=== PATIENT | male | born 1990 | race Caucasian/White ===

== ENCOUNTER 2019-07-06 15:51 | Inpatient (IN) | payer MEDICAID ==
[~2019-07-06] VITALS: Ht 172.7 cm; Wt 87.1 kg
--- NOTE | 2019-07-06 17:32 | NUR ---
PT BIBRA FROM OUTSIDE A DONUT SHOP TO ED BED 13. PT WAS NOTED TO BE UNDER THE INFLUENCE OF ALCOHOL. STABLE VITALS. AWAITING MD DUNNE.
--- NOTE | 2019-07-06 17:46 | NUR ---
DR LEWIS AT BEDSIDE FOR EVAL.
[2019-07-06] MEDS ORDERED: IV NS 0.9% 1,000 ML BAG IV ONE ×2 (18:00→20:30)
--- NOTE | 2019-07-06 18:23 | NUR ---
IV LINE STARTED BLOOD DRAWN AND SENT TO LAB.
[2019-07-06 18:36] LABS: HEMATOCRIT 27 % (39-51); HEMOGLOBIN 8.4 g/dL (13.5-17.5); MEAN CORPUSCULAR HGB CONC 32 g/dl (31.0-36.0); MEAN CORPUSCULAR VOLUME 64 fL (80-96); PLATELET COUNT (AUTO) 64 /CMM (150-450); RED BLOOD CELL COUNT(AUTO) 4.13 MIL/uL (4.5-6.0)
[2019-07-06 18:46] LABS: ALBUMIN 2.7 g/dL (3.4-5.0); BILIRUBIN,DIRECT 0.4 mg/dL (0.0-0.2); BILIRUBIN,TOTAL 1.1 mg/dL (0.2-1.0); CALCIUM, SERUM 8.3 mg/dL (8.5-10.1); CREATININE 1.4 mg/dL (0.6-1.3); TOTAL PROTEIN, SERUM 7.2 g/dL (6.4-8.2)
[2019-07-06 18:47] LABS: SALICYLATE 0.4 mg/dL (2.8-20.0)
[2019-07-06 18:51] LABS: POTASSIUM 3.3 mmol/L (3.5-5.1)
[2019-07-06 18:53] LABS: WHITE BLOOD COUNT (AUTO) 1.3 K/uL (4.3-11.0)
[2019-07-06 19:28] LABS: CALCIUM, SERUM 7.6 mg/dL (8.5-10.1); CREATININE 1.2 mg/dL (0.6-1.3); POTASSIUM 3.3 mmol/L (3.5-5.1)
--- NOTE | 2019-07-06 19:50 | NUR ---
called house sup for icu bed and submitted move sheet to admitting.
[2019-07-06 20:05] LABS: LYMPHOCYTES % (MANUAL) 20 % (16-48); MONOCYTES % (MANUAL) 8 % (0-11.0); NEUTROPHILS % (MANUAL) 72 (42-76)
[2019-07-06] MEDS ORDERED: LORAZEPAM INJ 2 MG/ML VIAL ONE (20:27)
--- NOTE | 2019-07-06 20:34 | NUR ---
verbal order from dr. fonseca: ativan 2mg ivp, given lac16 ivp
--- NOTE | 2019-07-06 21:09 | NUR ---
BED ASSIGNMENT 260
[2019-07-06] MEDS ORDERED: IOHEXOL-300 100 ML VIAL IV ONE (21:24)
--- NOTE | 2019-07-06 21:39 | NUR ---
REPORT GIVEN TO WILLIE CONNOR FOR ADMISSION
[2019-07-06] MEDS ORDERED: PROPOFOL 100 ML ONE (21:43)
[2019-07-06] MEDS: PROPOFOL 200 MG/20 ML VIAL IV PRN ×2 (21:44→23:46)
--- NOTE | 2019-07-06 22:00 | NUR ---
7.[address] LEWIS WITH RT @ 2132, 25 AT THE LIP, PLACEMENT CHECKED BY BILAT BREATH SOUNDS; CXR ORDERED FOR PLACEMENT CONFIRMATION, O2 SAT @100%, PT COLOR IS PINK, SKIN WARM AND DRY.
--- NOTE | 2019-07-06 22:01 | NUR ---
OG TUBE PLACED, CONFIRMED PLACEMENT THROUGH AUSCULTATION, ASPIRATION & XRAY. CONFIRMED WITH NIKOLAS RAUSCH
--- NOTE | 2019-07-06 22:09 | NUR ---
pt to ct
[2019-07-06] MEDS ORDERED: LORAZEPAM INJ 2 MG/ML VIAL IV ONE (23:00)
[2019-07-06] MEDS ORDERED: Z GUARD REMEDY 2 OZ OINT TP PRN (23:00)
[2019-07-06] MEDS ORDERED: FILGRASTIM (480 MCG) 480 MCG/1.6 ML VIAL SQ ONE (23:00)
[2019-07-06] MEDS ORDERED: MORPHINE SULFATE INJ 2 MG/ML DISP.SYRIN IV PRN (23:00)
[2019-07-06] MEDS ORDERED: ACETAMINOPHEN 650 MG/SUPP.RECT RC PRN (23:00)
--- NOTE | 2019-07-06 23:00 | NUR ---
RT PT WAS INTUBATED ON THE CURRENT MD ORDERED VENTILATOR SETTING.WILL CONTINUE TO MONITOR FOR CHANGES. ALARMSON AND AUDIABLE. AMBU-BAG AT BEDSIDE. VENTILATOR PLUGGED INTO RED OUTLET
--- NOTE | 2019-07-06 23:10 | NUR ---
ADMITTED FROM ER, ORALLY INTUBATED,SEDATED ON PROPOFOL DRIP, STILL GETS AGITATED DESPITE PROPOFOL( WILL INCREASE NEEDED).VERY TACHYPNEIC WITH DEEP LABORED BREATHING,TACHYCARDIC. PRESENTED TO ED ,WAS FOUND WITH ALCOHOL INTOXCATION.WHILE IN ER STARTED TO GET SHORT OF BREATH ,DESATURATED ,PATIENT INTUBATED.WBC=1.3,PLT=64,K=3.3
[2019-07-06 23:17] VITALS: BP 91/69
--- NOTE | 2019-07-06 23:18 | NUR ---
pt transported to icu
[2019-07-06 23:24] LABS: APPEARANCE,URINE Clear (CLEAR); BILIRUBIN,URINE Negative (NEGATIVE); BLOOD, URINE Moderate Ery/uL (NEGATIVE); COLOR,URINE Yellow (YELLOW); KETONES,URINE Trace (NEGATIVE); LEUKOCYTE ESTERASE ,URINE Negative (NEGATIVE); NITRITE, URINE Negative (NEGATIVE); PROTEIN,URINE 100 mg/dl (NEGATIVE); UGLUCOSE Negative (NEGATIVE); UROBILINOGEN,URINE 0.2 EU/dL (0.2)
[2019-07-06] MEDS ORDERED: VANCOMYCIN 1.25 GM in IV D5W 250 ML IV ONE (23:30)
[2019-07-06 23:42] VITALS: BP 91/69
[2019-07-06 23:54] LABS: BACTERIA,URINE None seen /HPF (None Seen); MUCUS,URINE Few /LPF (None Seen); RBC,URINE 0-2 /HPF (0-2); SQUAMOUS EPITHELIAL CELL,UR Moderate /HPF (None Seen); WBC,URINE 0-2 /HPF (0-3)
[2019-07-07] VITALS (43 sets, daily range): BP systolic 76–135; BP diastolic 42–82
[2019-07-07] MEDS ORDERED: PIPERACILLIN /TAZOBACTAM 3.375 G in IV D5W 50 ML IV SCH ×4
--- NOTE | 2019-07-07 | NUR ---
ABG DONE ,PH=7.32 , CO2= 31.6 , PO2= 84.5 ,HCO3= 16 ,SAT= 94.5
--- NOTE | 2019-07-07 | NUR ---
FAMILY VISITED, SISTER( ADITYA KELLOGG . STATED THAT GREGORY COX IS NOT THE PATIENTS NAME, REAL NAME IS EVENS KELLOGG. AND THAT PATIENT IS HOMELESS AND HAS BEEN DRINKING Q DAY FOR THE LAST 2 YEARS BUT PATIENT HAS BEEN DRINKING AT A YOUNG AGE (SINCE AGE 8).
[2019-07-07] MEDS: PROPOFOL 100 ML IV PRN ×10 (00:15→23:08)
[2019-07-07] MEDS ORDERED: PIPERACILLIN /TAZOBACTAM 3.375 G VIAL IV ONE (00:22)
[2019-07-07] MEDS ORDERED: VANCOMYCIN 500 MG VIAL ONE (00:45)
[2019-07-07] MEDS ORDERED: VANCOMYCIN 1 GM VIAL ONE (00:46)
[2019-07-07] MEDS: LORAZEPAM INJ 2 MG/ML VIAL IV SCH ×5 (00:53→23:00)
--- NOTE | 2019-07-07 01:30 | NUR ---
RT NOTE PT TRANSFER TO ICU ROOM 206. RN NONA PRESENT. VENT PLUGGED INTO RED OUTLET ALARMS ON AND AUDIABLE. AMBUBAG BY BEDSIDE.PT CURRENTLY ON AC VC+ 450, 16, 100%, PEEP 5. SIZE 7.5 ETTUBE. WILL CONTINUE TO MONTOR FOR DISTRESS OR CHANGES.
--- NOTE | 2019-07-07 02:00 | NUR ---
PER NURSING SHOP WELDER THERE IS NO D5NSS WITH KCL OF NOW,HAS TO WAIT TILL PHARMACY CAN MIX IT IN THE MORNING.,,BUT THERE IS PREMIX NSS WITH KCL ,WILL VERIFY WITH MD IF WE CAN CHANGE FOR NOW.
[2019-07-07 02:59] LABS: ABG BASE EXCESS -9.2 mmol/L; ABG OXYGEN SATURATION 94.5 % (92.0-98.5); ABG PCO2 31.6 mmHg (35.0-45.0); ABG PH 7.321 (7.350-7.450); ABG PO2 84.5 mmHg (75.0-100.0); AaDO2 596.9 mmHg; COHb 1.2 % (0.5-1.5); MetHb 0.1 % (0.0-1.5); O2Hb 93.3 % (94.0-97.0); SITE, ABG Left Radial
--- NOTE | 2019-07-07 03:00 | NUR ---
VERIFIED WITH IF WE CAN HANG NSS WITH KCL FOR NOW .DR. DAO SAID ITS FINE,BUT STILL WANTS THE D5NSS WITH KCL WHEN AVAILABLE.WILL GET IV FLUID FROM NURSING EMPLOYMENT MANAGER.
[2019-07-07] MEDS ORDERED: Potassium Chloride 20 MEQ in IV NS 0.9% 1,000 ML IV PRN (03:30)
--- NOTE | 2019-07-07 03:30 | NUR ---
SPOKE TO GOLF COURSE DESIGNER FOR THE IV FLUID (NSS WITH KCL),REQUEST FORWARDED TO HIM.
--- NOTE | 2019-07-07 03:40 | NUR ---
FOLLOWED UP FROM THE NURSING STAMPING DIE MAKER BENCH ABOUT THE IV FLUID.HE REPLIED HE WILL JUST CALL ME ONCE HE HAS THE IV FLUID( STATED HE'S VERY BUSY RIGHT NOW,HE WILL GET TO ME ONCE HE HAS IT.
--- NOTE | 2019-07-07 03:50 | NUR ---
IV FLUID D5NSS WITHOUT KCL HANGED FOR NOW WHILE WAITING FOR D5NSS WITH KCL @ 80 ML/HR
--- NOTE | 2019-07-07 04:00 | NUR ---
REMAINS AGITATED ON AND OFF,PROPOFOL TITRATED NEEDED BUT BP DROPS INTO 80'S SYSTOLIC AT TIMES( PROPOFOL ACTIVELY TITRATED TOLERATED).STILL TACHYPNEIC WITH LABORED BREATHING.FEBRILE YOIJ=869, COOLING MEASURES DONE,MORE TACHYCARDIC IN THE 130'S DUE TO FEVER.
[2019-07-07 05:16] LABS: HEMATOCRIT 26 % (39-51); HEMOGLOBIN 8.2 g/dL (13.5-17.5); LYMPHOCYTES # (AUTO) 0.2 /CMM (0.8-4.8); MEAN CORPUSCULAR HGB CONC 31 g/dl (31.0-36.0); MEAN CORPUSCULAR VOLUME 66 fL (80-96); MONOCYTES # (AUTO) 0.1 /CMM (0.1-1.30); NEUTROPHILS # (AUTO) 0.2 /CMM (1.8-8.9); PLATELET COUNT (AUTO) 51 /CMM (150-450); RED BLOOD CELL COUNT(AUTO) 4.03 MIL/uL (4.5-6.0)
[2019-07-07 05:32] LABS: ALANINE AMINOTRANSFERASE 46 U/L (12-78); ALBUMIN 2.1 g/dL (3.4-5.0); ALKALINE PHOSPHATASE 40 U/L (46-116); ASPARTATE AMINOTRANSFERASE 99 U/L (15-37); BILIRUBIN,TOTAL 0.8 mg/dL (0.2-1.0); CALCIUM, SERUM 7.4 mg/dL (8.5-10.1); CARBON DIOXIDE 20 mmol/L (21-32); CHLORIDE 82 mmol/L (98-107); CREATININE 1.1 mg/dL (0.6-1.3); GLUCOSE 100 mg/dL (74-106); PHOSPHORUS 2.5 mg/dL (2.5-4.9); POTASSIUM 3.1 mmol/L (3.5-5.1); TOTAL PROTEIN, SERUM 5.8 g/dL (6.4-8.2); UREA NITROGEN, BLOOD 10 mg/dL (7-18)
[2019-07-07 05:36] LABS: WHITE BLOOD COUNT (AUTO) 0.5 K/uL (4.3-11.0)
[2019-07-07 05:40] LABS: CHOLESTEROL 117 mg/dL (<200); HDL CHOLESTEROL 35 mg/dL (40-60); LDL 15 mg/dL (0-99); THYROID STIMULATING HORMONE 0.381 uIU/mL (0.358-3.74); TRIGLYCERIDES 144 mg/dL (30-150)
[2019-07-07 06:01] LABS: SODIUM SERUM 116 mmol/L (136-145)
[2019-07-07 06:02] LABS: MAGNESIUM 1.1 mg/dL (1.8-2.4)
[2019-07-07] MEDS: Potassium Chloride 20 MEQ in IV D5/ 0.9% NACL 1,000 ML IV PRN (06:16)
[2019-07-07 06:40] LABS: EOSINOPHILS % (MANUAL) 3 % (0-4); LYMPHOCYTES % (MANUAL) 34 % (16-48); MONOCYTES % (MANUAL) 25 % (0-11.0); NEUTROPHILS % (MANUAL) 38 (42-76)
[2019-07-07] MEDS: VANCOMYCIN 1.25 GM in IV D5W 250 ML IV SCH ×3 (07:06→20:12)
--- NOTE | 2019-07-07 07:53 | NUR ---
RT RECEIVED PT ORALLY INTUBATED, VENT DEPENDENT W/ ETT 7.5 MARKED @ 25CM LIP, WITH NOTED VENT SETTINGS. SEED PELLETER DONE AND AIRWAY IS SECURE. VENT ALARMS CHECKED AND AUDIBLE. VENT PLUGGED IN RED OUTLET. AMBU BAG NOTED HOB. SORIN B/S RHONCHI, SX W/ SML TO MOD THN GUTIERREZ SECRETIONS. WILL CONTINUE TO MONITOR T/O SHIFT.
[2019-07-07] MEDS ORDERED: ACETAMINOPHEN 650 MG/20.3 ML UDC NG PRN (08:00)
--- NOTE | 2019-07-07 08:00 | NUR ---
CLINICAL QUALITY RN NOTE PATIENT IN BED WITH VENT SETTING ORDERED WITHH ETT IN PLVED , WITH PICC LINE IN PLACED FLUSHED WELL , ON PROPOFOL DRIP ORDERED , ON IVF ORDERED WITH BETHEA CATH TO GRAVITY WITH YELLOW COLOR URINE, STILL OBTUNDED, ON TELE MONITOR ST HR 136 T 1.2.1 TYLENOL VIA OG TUBE GIVEN ORDERED ,COOLING MEASURE PROVIDED, WILL CONT TO MONITOR
[2019-07-07] MEDS ORDERED: FEE PK DOSING 1 MIN EA MC ONE ×2 (08:28→13:45)
[2019-07-07] MEDS: PANTOPRAZOLE 40 MG VIAL IV SCH (08:35)
[2019-07-07] MEDS: THIAMINE HCL 100 MG TABLET NG SCH (08:35)
[2019-07-07] MEDS: MULTIVITAMINS,THERAGRAN 1 UDTAB TABLET NG SCH (08:35)
[2019-07-07] MEDS: FOLIC ACID 1 MG TABLET NG SCH (08:35)
[2019-07-07 08:46] LABS: CALCIUM, SERUM 7.2 mg/dL (8.5-10.1); CREATININE 1.3 mg/dL (0.6-1.3); POTASSIUM 3.2 mmol/L (3.5-5.1)
[2019-07-07] MEDS ORDERED: TBO-FILGRASTIM 480 MCG/0.8 ML ML SQ ONE (09:00)
[2019-07-07] MEDS ORDERED: PIPERACILLIN /TAZOBACTAM 3.375 G in IV D5W 100 ML IV SCH (09:00)
--- NOTE | 2019-07-07 09:10 | NUR ---
RT ABG WAS DONE PER MD ORDER. RESULTS RELAYED TO RN. NO CHANGES MADE.
[2019-07-07 09:13] LABS: ABG BASE EXCESS -7.5 mmol/L; ABG OXYGEN SATURATION 92.5 % (92.0-98.5); ABG PCO2 24.2 mmHg (35.0-45.0); ABG PH 7.432 (7.350-7.450); ABG PO2 64.7 mmHg (75.0-100.0); AaDO2 624.1 mmHg; COHb 1.5 % (0.5-1.5); MetHb 0.3 % (0.0-1.5); O2Hb 90.8 % (94.0-97.0); PEEP,BG 5 cm H2O; SITE, ABG Left Radial; VT, ABG 450 mL
[2019-07-07] MEDS ORDERED: ETOMIDATE 2 MG/ML VIAL IV ONE (09:38)
[2019-07-07] MEDS ORDERED: SUCCINYLCHOLINE CHLORIDE 20 MG/ML VIAL IV ONE (09:38)
--- NOTE | 2019-07-07 10:00 | NUR ---
RETURNED MATERIALS INSPECTOR NOTE LACTIC ACID TODAY3.7 NA 116 AWARE THAT T 1.2.3 AWARE THAT MAG 1.1 .K 3.2
[2019-07-07] MEDS: Magnesium 1GM/D5W 100ML PREMIX 100 ML IV SCH ×4 (10:20→12:59)
[2019-07-07] MEDS ORDERED: PROPOFOL 100 ML IV PRN (10:30)
[2019-07-07] MEDS: POTASSIUM CL. PREMIX PERIPHER. 50 ML IV SCH ×2 (10:31→11:28)
[2019-07-07] MEDS ORDERED: PHENYLEPHRINE 80 MG in IV D5W 250 ML IV PRN (11:30)
[2019-07-07] MEDS: PHENYLEPHRINE 80 MG in IV D5W 250 ML IV PRN ×2 (11:59→21:09)
--- NOTE | 2019-07-07 12:08 | NUR ---
PRIMARY CARE PHYSICIAN NOTE BP 74/55 CALLED TO BREONNA WITH ORDER TO START CAMRYN DRIP ORDER CARRIED OUT, UA COLLECTED ORDERED ALSO COOLING BLANKET APPLIED, T 101.0
--- NOTE | 2019-07-07 12:31 | NUR ---
MANAGER QUALITY NOTE ON CAMRYN DRIP ORDERED BP 92/45 INFLUENZA SPECIMEN COLLECTED , 2 D ECHO DONE ORDERED
--- NOTE | 2019-07-07 16:00 | NUR ---
ICU RNNOTE DIFLUCAN NOT AVAILABLE, DUNG PHARMACIST AWARE STATED THAT WILL BRING SOON
[2019-07-07] MEDS: OSELTAMIVIR PHOSPHATE 75 MG CAPSULE PO SCH (16:18)
[2019-07-07] MEDS: LEVOFLOXACIN 500 MG /D5W 100ML 500 MG in PREMIX 1 EA IV SCH (16:41)
--- NOTE | 2019-07-07 16:45 | NUR ---
AGENT SPA DESK NOTE BP 87/45,[facility] WILL FF[facility] Addendum: 07/07/19 at 1646 by CARLEE BOOTHE RN STOOL FOR OB COLLECTED, WILL F\U
[2019-07-07 17:00] LABS: OCCULT BLOOD STOOL POSITIVE (NEGATIVE)
--- NOTE | 2019-07-07 17:11 | NUR ---
RECORDER HELPER SEISMOGRAPH NOTE CALLED TO PHARMACY DIFLUCAN NOT AVAILABLE STATED THAT WILL BRING SOON
--- NOTE | 2019-07-07 17:51 | NUR ---
GERIATRIC CASE MANAGER NOTE CALLED AGAIN TO PHARMACY NOTIFIED THAT DIFLUCAN STILL NOT AVAILABLE STATED THAT WILL BRING SOON WILL F\U Addendum: 07/07/19 at 1819 by CARLEE BOOTHE RN 2 NURSES CHECKS FOR DIFLUCAN IN MED ROOM STILL NOT AVAILABLE, SPOKE WITH JAMES PHARMACIST STATED WILL BRING ,STILL BUSY
[2019-07-07] MEDS: FLUCONAZOLE IN NS,PREMIX 200 MG in PREMIX 1 EA IV SCH ×2 (18:24)
[2019-07-07] MEDS: MEROPENEM 1 G in IV NS 0.9% 100 ML IV SCH (18:38)
--- NOTE | 2019-07-07 19:35 | NUR ---
OVERSIZE LOAD PILOT ESCORT NOTE CONT WITH VENT SETTING ORDERED WITH IVF AND PROPOFOL DRIP WILL CONT TO MONITOR ,ENDORSED CARE WITH UPCOMING NURSE
[2019-07-08] VITALS (102 sets, daily range): BP systolic 73–128; BP diastolic 39–90
[2019-07-08] MEDS: PROPOFOL 100 ML IV PRN ×6 (02:23→19:56)
[2019-07-08] MEDS: MEROPENEM 1 G in IV NS 0.9% 100 ML IV SCH ×3 (02:25→22:30)
[2019-07-08] MEDS: LORAZEPAM INJ 2 MG/ML VIAL IV SCH ×4 (04:35→22:29)
[2019-07-08] MEDS: VANCOMYCIN 1.25 GM in IV D5W 250 ML IV SCH ×3 (04:35→20:47)
--- NOTE | 2019-07-08 05:00 | NUR ---
AT APPROX 0200, PT ON STARTED DESATTING INTO THE LOW 80S ON 100% FIO2 PEEP 5.0, CHEST PT DONE AND PT SUCTIONED WITH MINIMAL IMPROVEMENT O2SAT STILL HIGH 80S. PT TURNED TO ELEVATE RIGHT LUNG BECAUSE LEFT LUNG HAS MULTIFOCAL CONSOLIDATION. PT AMBUBAGED TO HELP IMPROVE SAT. EVENTUALLY SAT RETURNED TO LOW 90S
[2019-07-08] MEDS: Potassium Chloride 20 MEQ in IV D5/ 0.9% NACL 1,000 ML IV PRN (05:13)
[2019-07-08] MEDS: PHENYLEPHRINE 80 MG in IV D5W 250 ML IV PRN ×4 (05:20→23:05)
[2019-07-08 05:35] LABS: BASOPHILS % (AUTO) 0.5 % (0.0-2.0); EOSINOPHILS % (AUTO) 0.5 % (0.0-6.0); HEMATOCRIT 26 % (39-51); HEMOGLOBIN 8.3 g/dL (13.5-17.5); LYMPHOCYTES # (AUTO) 0.5 /CMM (0.8-4.8); LYMPHOCYTES % (AUTO) 14.6 % (20.0-44.0); MEAN CORPUSCULAR HGB CONC 32 g/dl (31.0-36.0); MEAN CORPUSCULAR VOLUME 67 fL (80-96); MONOCYTES # (AUTO) 0.1 /CMM (0.1-1.30); MONOCYTES % (AUTO) 2.4 % (2.0-12.0); NEUTROPHILS # (AUTO) 3.1 /CMM (1.8-8.9); RED BLOOD CELL COUNT(AUTO) 3.82 MIL/uL (4.5-6.0); WHITE BLOOD COUNT (AUTO) 3.8 K/uL (4.3-11.0)
[2019-07-08 05:39] LABS: PLATELET COUNT (AUTO) 46 /CMM (150-450)
[2019-07-08 06:06] LABS: ALBUMIN 1.7 g/dL (3.4-5.0); BILIRUBIN,TOTAL 1.9 mg/dL (0.2-1.0); CREATININE 2.4 mg/dL (0.6-1.3); MAGNESIUM 1.8 mg/dL (1.8-2.4); PHOSPHORUS 4.5 mg/dL (2.5-4.9); POTASSIUM 4.1 mmol/L (3.5-5.1); TOTAL PROTEIN, SERUM 5.2 g/dL (6.4-8.2)
[2019-07-08 06:14] LABS: CALCIUM, SERUM 6.9 mg/dL (8.5-10.1)
--- NOTE | 2019-07-08 07:15 | NUR ---
RN INITIAL NOTES RECEIVED INTUBATED, ON VENT. 02 SAT 86%. HOB ELEVATED. SUCTIONED THIN BROWN SECRETIONS. FI02 ON 100%. SINUS TACH ON MONITOR, 125. OG IN PLACE, CLAMPED. PT SEDATED, ON DIPRIVAN AT 50MCG/KG/MIN. ON CAMRYN AT 200MCG/MIN. WILL TITRATE ACCORDINGLY. IVF INFUSING. FC IN PLACE. BLE ELEVATED/ REPOSITIONED. WILL CLOSELY MONITOR
[2019-07-08] MEDS ORDERED: SODIUM CHLORIDE 3% IV ONE (08:00)
[2019-07-08] MEDS: PANTOPRAZOLE 40 MG VIAL IV SCH (08:37)
[2019-07-08] MEDS: MULTIVITAMINS,THERAGRAN 1 UDTAB TABLET NG SCH (08:38)
[2019-07-08] MEDS: THIAMINE HCL 100 MG TABLET NG SCH (08:38)
[2019-07-08] MEDS: OSELTAMIVIR PHOSPHATE 75 MG CAPSULE PO SCH ×2 (08:38→16:21)
[2019-07-08] MEDS: FOLIC ACID 1 MG TABLET NG SCH (08:38)
--- NOTE | 2019-07-08 10:36 | NUR ---
RT NOTE Critical ABG results given to Jose J STEVENS. Vent changes to AC 10 600 100% +14 per Jose J STEVENS. Addendum: 07/08/19 at 1119 by BROOKE RUBI RT Amended: Links added.
[2019-07-08 10:39] LABS: ABG BASE EXCESS -11.8 mmol/L; ABG OXYGEN SATURATION 77.6 % (92.0-98.5); ABG PCO2 37.5 mmHg (35.0-45.0); ABG PO2 47.4 mmHg (75.0-100.0); AaDO2 628.1 mmHg; COHb 1.1 % (0.5-1.5); MetHb 0.2 % (0.0-1.5); O2Hb 76.6 % (94.0-97.0); PEEP,BG 12 cm H2O; SITE, ABG Right Radial; VT, ABG 650 mL
[2019-07-08] MEDS ORDERED: IV Sodium Chloride 3% 500 ML 500 ML IV ONE (11:00)
[2019-07-08] MEDS ORDERED: SODIUM BICARBONATE SYR 50 MEQ/50 ML DISP.SYRIN IV ONE (11:30)
--- NOTE | 2019-07-08 11:35 | NUR ---
RN NOTES SEEN AND EXAMINED BY DR CALZADA. PT INTUBATED, O2 SAT ON LOW 80S, FI02 100%. PT SEDATED. SUCTIONED BROWN THIN SECRETIONS, MODERATE IN AMOUNT. MD AWARE OF ABG RESULT. ORDERED VENT CHANGES, SODIUM BICARB 2 AMPS IVP AND D5 + SODIUM BICARB 3 AMPS AT 75ML/HR. WILL CLOSELY MONITOR.
[2019-07-08] MEDS: HYDROCORTISONE SOD SUCCINATE 100 MG/2 ML VIAL IV SCH ×2 (11:47→16:21)
[2019-07-08] MEDS: ALBUMIN 25% 25 GM in PREMIX 1 EA IV SCH ×2 (12:19→19:56)
[2019-07-08] MEDS: Sodium Bicarbonate 150 MEQ in IV D5W 1,000 ML IV PRN (12:19)
[2019-07-08 13:11] LABS: LYMPHOCYTES % (MANUAL) 5 % (16-48); MONOCYTES % (MANUAL) 20 % (0-11.0); NEUTROPHILS % (MANUAL) 75 (42-76)
--- NOTE | 2019-07-08 14:39 | NUR ---
RT NOTE pt rec'd orally intubated via ETT sz #7.5 secured at 25cm at the lipline. Pt sx'd for large amt of thin brown secretions. Pt on noted [facility] vent settings as charted. Alarms are set and audible. Vent plugged into red outlet. Ambu bag bedside. Will continue to monitor closely. Addendum: 07/08/19 at 1443 by BROOKE RUBI RT Amended: Links added.
--- NOTE | 2019-07-08 15:02 | NUR ---
Social service consult requested by MD for possible homelessness and ETOH. Pt is currently intubated. ARCADE GAMES MECHANIC to assess pt. once extubated and able to provide meaningful information.
[2019-07-08] MEDS: FLUCONAZOLE IN NS,PREMIX 200 MG in PREMIX 1 EA IV SCH ×2 (16:20)
[2019-07-08 17:18] LABS: CALCIUM, SERUM 6.8 mg/dL (8.5-10.1); CREATININE 2.9 mg/dL (0.6-1.3); POTASSIUM 4.1 mmol/L (3.5-5.1)
[2019-07-08] MEDS: LEVOFLOXACIN 500 MG /D5W 100ML 500 MG in PREMIX 1 EA IV SCH (17:29)
--- NOTE | 2019-07-08 18:32 | NUR ---
RN CLOSING NOTES PT REMAINS INTUBATED. FI02 100%, 02 SAT 70-80%. KEPT HOB ELEVATED. SUCTIONED. STILL ON CAMRYN AT 300MCG/MIN, SBP ON 80S. EDITHACCORDION REPAIRER NOTIFIED. ORDERED VASO PRN. REMAINS SEDATED, ON DIPRIVAN AT 50MCG/KG/MIN. IVF INFUSING. KEPT CLEAN AND DRY. REPOSITIONED Q2. BLE ELEVATED. WILL ENDORSE FOR CONTINUITY OF CARE.
[2019-07-08] MEDS: VASOPRESSIN INJ 50 UNIT in IV D5W 497.5 ML IV PRN (20:18)
--- NOTE | 2019-07-08 21:15 | NUR ---
RECEIVED PT INTUBATED ON VENT AC 10, 600, 100%, +14. ETT SIZE 7.5 AT 24CM AT THE LIP VIA ANCHOR FAST. O2 SAT IS IN LOW 70'S NIKOLAS CASTELLANOS AWARE. VENT SETTINGS CHANGED PER DR DAO. RATE CHANGED TO 14 FROM 10, PEEP TO 5 FROM 14. Addendum: 07/08/19 at 2119 by ASIF JUAREZ RT Amended: Links added.
[2019-07-09] VITALS (96 sets, daily range): BP systolic 65–124; BP diastolic 27–81
[2019-07-09] MEDS: ACETYLCYSTEINE 10% SOLN 400 MG/4 ML VIAL NEB SCH ×4 (00:25→23:39)
[2019-07-09] MEDS: PROPOFOL 100 ML IV PRN ×5 (00:36→18:00)
[2019-07-09] MEDS: ALBUMIN 25% 25 GM in PREMIX 1 EA IV SCH (02:55)
[2019-07-09] MEDS: Sodium Bicarbonate 150 MEQ in IV D5W 1,000 ML IV PRN ×2 (04:58→18:26)
[2019-07-09] MEDS: LORAZEPAM INJ 2 MG/ML VIAL IV SCH ×4 (05:04→22:19)
[2019-07-09 05:06] LABS: ALANINE AMINOTRANSFERASE 23 U/L (12-78); ALBUMIN 2.3 g/dL (3.4-5.0); ALKALINE PHOSPHATASE 80 U/L (46-116); ASPARTATE AMINOTRANSFERASE 130 U/L (15-37); BILIRUBIN,TOTAL 2.2 mg/dL (0.2-1.0); CALCIUM, SERUM 6.8 mg/dL (8.5-10.1); CARBON DIOXIDE 21 mmol/L (21-32); CHLORIDE 83 mmol/L (98-107); CREATININE 3.2 mg/dL (0.6-1.3); GLUCOSE 199 mg/dL (74-106); MAGNESIUM 1.7 mg/dL (1.8-2.4); PHOSPHORUS 4.6 mg/dL (2.5-4.9); POTASSIUM 3.6 mmol/L (3.5-5.1); TOTAL PROTEIN, SERUM 4.9 g/dL (6.4-8.2); UREA NITROGEN, BLOOD 26 mg/dL (7-18)
[2019-07-09 05:32] LABS: SODIUM SERUM 119 mmol/L (136-145)
[2019-07-09] MEDS ORDERED: VANCOMYCIN 1 GM VIAL ONE (05:35)
[2019-07-09 05:38] LABS: BASOPHILS # (AUTO) 0.1 /CMM (0.0-0.2); BASOPHILS % (AUTO) 0.4 % (0.0-2.0); EOSINOPHILS % (AUTO) 0.1 % (0.0-6.0); LYMPHOCYTES # (AUTO) 0.7 /CMM (0.8-4.8); LYMPHOCYTES % (AUTO) 5.5 % (20.0-44.0); MEAN CORPUSCULAR HGB CONC 31 g/dl (31.0-36.0); MEAN CORPUSCULAR VOLUME 66 fL (80-96); MONOCYTES # (AUTO) 0.1 /CMM (0.1-1.30); MONOCYTES % (AUTO) 0.5 % (2.0-12.0); NEUTROPHILS # (AUTO) 12.3 /CMM (1.8-8.9); NEUTROPHILS % (AUTO) 93.5 % (43.0-81.0); RED BLOOD CELL COUNT(AUTO) 3.41 MIL/uL (4.5-6.0); WHITE BLOOD COUNT (AUTO) 13.1 K/uL (4.3-11.0)
[2019-07-09] MEDS ORDERED: VANCOMYCIN 500 MG VIAL ONE (05:40)
[2019-07-09 05:41] LABS: HEMATOCRIT 23 % (39-51); PLATELET COUNT (AUTO) 24 /CMM (150-450)
[2019-07-09] MEDS: VANCOMYCIN 1.25 GM in IV D5W 250 ML IV SCH (05:50)
[2019-07-09 06:05] LABS: BAND % (MANUAL) 20 % (0.0-5.0); LYMPHOCYTES % (MANUAL) 7 % (16-48); NEUTROPHILS % (MANUAL) 73 (42-76)
--- NOTE | 2019-07-09 06:20 | NUR ---
VANCOMYCIN 1.25 G BAG NOT LEFT BY PHARMACY, HAD TO GET ASSOCIATE PROFESSOR OF LIBRARY MEDIA TO OVERRIDE 1 GM AND 500 MG TO MIX 1.25 IN 250 ML
--- NOTE | 2019-07-09 06:22 | NUR ---
PT REQUIRING CONSTANT SUCTIONING AND AMBU BAGGING TO TRY TO GET O2SAT > 80 %, OVER 1L OF SECRETIONS FROM ETT IN LINE SUCTIONING, IT WAS REDDISH BROWN AND THICK
--- NOTE | 2019-07-09 07:20 | NUR ---
RN NOTE: Received patient in bed, intubated and sedated with O2 saturation in the 55% with FIO2 100%. ETT 7.5/25cm attached at the lip line. HOB elevated. (R) UA PICC line noted in placed with Diprivan @ 50mcg/kg/min, Vasopressin @0.04 units/min, Neosynephrine @150mcg/min and Bicarbonate drip @75ml/hr. Afebrile. Skin warm to touch. Colunga catheter in placed with yellow urine draining to gravity with minimal urine output. Needs anticipated. Will follow-up with the hospitalist and folded towel machine operator about the patient's condition.
[2019-07-09 07:49] LABS: ABG BASE EXCESS -5.8 mmol/L; ABG OXYGEN SATURATION 65.4 % (92.0-98.5); ABG PCO2 44.4 mmHg (35.0-45.0); ABG PH 7.281 (7.350-7.450); AaDO2 630.6 mmHg; COHb 1.4 % (0.5-1.5); MetHb 0.6 % (0.0-1.5); O2Hb 64.1 % (94.0-97.0); PEEP,BG 5 cm H2O; SITE, ABG Right Radial; VT, ABG 600 mL
[2019-07-09] MEDS: OSELTAMIVIR PHOSPHATE 75 MG CAPSULE PO SCH ×2 (08:31→17:50)
[2019-07-09] MEDS: HYDROCORTISONE SOD SUCCINATE 100 MG/2 ML VIAL IV SCH ×3 (08:31→17:50)
[2019-07-09] MEDS: FOLIC ACID 1 MG TABLET NG SCH (08:31)
[2019-07-09] MEDS: THIAMINE HCL 100 MG TABLET NG SCH (08:31)
[2019-07-09] MEDS: MULTIVITAMINS,THERAGRAN 1 UDTAB TABLET NG SCH (08:31)
[2019-07-09] MEDS: PANTOPRAZOLE 40 MG VIAL IV SCH (08:31)
[2019-07-09 08:39] LABS: BILIRUBIN,DIRECT 1.7 mg/dL (0.0-0.2)
[2019-07-09] MEDS: PHENYLEPHRINE 80 MG in IV D5W 250 ML IV PRN ×3 (09:11→21:18)
[2019-07-09] MEDS: MEROPENEM 1 G in IV NS 0.9% 100 ML IV SCH ×2 (09:53→22:30)
[2019-07-09 10:20] LABS: ABG BASE EXCESS -4.9 mmol/L; ABG OXYGEN SATURATION 59.7 % (92.0-98.5); ABG PH 7.259 (7.350-7.450); ABG PO2 36.7 mmHg (75.0-100.0); AaDO2 626.3 mmHg; COHb 1.4 % (0.5-1.5); MetHb 0.5 % (0.0-1.5); O2Hb 58.6 % (94.0-97.0); PEEP,BG 10 cm H2O; SITE, ABG Right Radial; VT, ABG 600 mL
--- NOTE | 2019-07-09 10:24 | NUR ---
RN NOTE: Dr. Weiss was informed of the repeat ABG result and awaiting for MD's response.
--- NOTE | 2019-07-09 10:45 | NUR ---
RN NOTE: Dr. Ortiz was at the bedside and was explaining to the patient's sister the plan of care for the patient. All concerns were discussed with the hospitalist by the sister.
--- NOTE | 2019-07-09 11:20 | NUR ---
RN NOTE: Dr. Weiss gave an order for the vent changes of PEEP 15 and ABG in 1 hour after vent changes. RT Sharita was at the bedside and made aware.
--- NOTE | 2019-07-09 12:31 | NUR ---
RN NOTE: Dr. Weiss was informed of the repeat ABG @1220. Awaiting for MD's response. Patient has been saturating 43-45% on the current mechanical ventilator setting.
[2019-07-09 12:33] LABS: ABG BASE EXCESS -7.2 mmol/L; ABG OXYGEN SATURATION 55.6 % (92.0-98.5); ABG PCO2 55.2 mmHg (35.0-45.0); ABG PH 7.192 (7.350-7.450); ABG PO2 36.3 mmHg (75.0-100.0); AaDO2 621.5 mmHg; COHb 1.4 % (0.5-1.5); MetHb 0.3 % (0.0-1.5); O2Hb 54.7 % (94.0-97.0); PEEP,BG 15 cm H2O; SITE, ABG Right Radial; VT, ABG 600 mL
--- NOTE | 2019-07-09 12:41 | NUR ---
RN NOTE: Dr. Weiss spoke over the telephone with RT Sharita regarding the patient's ABG result. New vent changes were ordered by Dr. Weiss through RT Sharita and another ABG 1 hour post vent changes.
[2019-07-09 13:58] LABS: ABG BASE EXCESS -6.4 mmol/L; ABG OXYGEN SATURATION 68.3 % (92.0-98.5); ABG PCO2 57.4 mmHg (35.0-45.0); ABG PH 7.193 (7.350-7.450); ABG PO2 43.4 mmHg (75.0-100.0); AaDO2 612.2 mmHg; COHb 1.2 % (0.5-1.5); MetHb 0.5 % (0.0-1.5); O2Hb 67.1 % (94.0-97.0); PEEP,BG 18 cm H2O; SITE, ABG Right Radial; VT, ABG 650 mL
--- NOTE | 2019-07-09 15:15 | NUR ---
RN NOTE: Dr. Ortiz was informed of the patient's Magnesium level 1.7. Awaiting for MD's order.
[2019-07-09 15:58] LABS: ABG BASE EXCESS -8.3 mmol/L; ABG OXYGEN SATURATION 68.3 % (92.0-98.5); ABG PCO2 40.9 mmHg (35.0-45.0); ABG PH 7.263 (7.350-7.450); ABG PO2 40.9 mmHg (75.0-100.0); AaDO2 631.2 mmHg; COHb 0.9 % (0.5-1.5); MetHb 0.8 % (0.0-1.5); O2Hb 67.1 % (94.0-97.0); PEEP,BG 20 cm H2O; SITE, ABG Right Radial; VT, ABG 750 mL
[2019-07-09] MEDS: FLUCONAZOLE IN NS,PREMIX 200 MG in PREMIX 1 EA IV SCH ×2 (16:33)
[2019-07-09] MEDS: VASOPRESSIN INJ 50 UNIT in IV D5W 497.5 ML IV PRN (17:19)
[2019-07-09 17:40] LABS: ABG BASE EXCESS -11.4 mmol/L; ABG OXYGEN SATURATION 74.2 % (92.0-98.5); ABG PCO2 44.8 mmHg (35.0-45.0); ABG PH 7.178 (7.350-7.450); ABG PO2 49.5 mmHg (75.0-100.0); AaDO2 618.7 mmHg; COHb 1.1 % (0.5-1.5); MetHb 0.5 % (0.0-1.5); PEEP,BG 22 cm H2O; SITE, ABG A-Line; VT, ABG 750 mL
--- NOTE | 2019-07-09 17:53 | NUR ---
RT NOTE: PATIENT RECEIVED ORALLY INTUBATED WITH 7.5 ETT SECURED AT 25CM MID LIP LINE ON PB 840 VENT. ABG'S REPORTED TO AND CHANGES MADE PER HIS ORDERS. VENT PLUGGED INTO RED OUTLET. AMBU BAG AT [facility].
[2019-07-09] MEDS: LEVOFLOXACIN 500 MG /D5W 100ML 500 MG in PREMIX 1 EA IV SCH (18:27)
[2019-07-09] MEDS ORDERED: IV NS 0.9% 1,000 ML IV PRN (19:24)
--- NOTE | 2019-07-09 19:30 | NUR ---
RN NOTE: Bedside report was given to NIKOLAS Eugene for continuity of care. (B) soft wrist restraints were renewed. Patient had a (R) femoral A-line in placed by Dr. Ortiz @1700 today at the bedside. Family was present at the bedside and explained to them the importance of the arterial line for accurate BP reading and they were agreeable of the bedside procedure.
[2019-07-09 19:42] LABS: ABG BASE EXCESS -13.2 mmol/L; ABG OXYGEN SATURATION 74.4 % (92.0-98.5); ABG PCO2 47.1 mmHg (35.0-45.0); ABG PH 7.128 (7.350-7.450); ABG PO2 51.3 mmHg (75.0-100.0); AaDO2 614.6 mmHg; COHb 1.1 % (0.5-1.5); MetHb 0.4 % (0.0-1.5); O2Hb 73.3 % (94.0-97.0); PEEP,BG 22 cm H2O; SITE, ABG A-Line
--- NOTE | 2019-07-09 19:44 | NUR ---
ABG DONE. NOTIFIED NIKOLAS CASTELLANOS AND CHARGE REZA WITH THE RESULT.
[2019-07-09] MEDS ORDERED: SODIUM BICARBONATE SYR 50 MEQ/50 ML DISP.SYRIN IV ONE (20:00)
--- NOTE | 2019-07-09 20:00 | NUR ---
INSURANCE ADJUSTER - NOTES - PT INTUBATED. FI02 100% PEEP 22.0, 02 SAT 70-80%. KEPT HOB ELEVATED. SUCTIONED. STILL ON CAMRYN AT 300MCG/MIN AND VASOPRESSIN 0.04 UNITS/MIN, SBP ON 80S. REMAINS SEDATED, ON DIPRIVAN AT 50MCG/KG/MIN. IVF INFUSING. KEPT CLEAN AND DRY. REPOSITIONED Q2. BLE ELEVATED. WILL ENDORSE FOR CONTINUITY OF CARE.
[2019-07-09] MEDS: NOREPINEPHRINE 16 MG in IV D5W 500 ML IV PRN (21:19)
[2019-07-10] VITALS (86 sets, daily range): BP systolic 53–122; BP diastolic 27–70
--- NOTE | 2019-07-10 00:43 | NUR ---
COTTON CANDY MAKER PT AT 2304. DECLARED LUCA KENDALL..
[2019-07-10] MEDS: PHENYLEPHRINE 80 MG in IV D5W 250 ML IV PRN ×5 (01:49→20:01)
[2019-07-10] MEDS: PROPOFOL 100 ML IV PRN ×5 (01:51→18:36)
[2019-07-10] MEDS: LORAZEPAM INJ 2 MG/ML VIAL IV SCH ×3 (05:00→17:05)
[2019-07-10] MEDS: Sodium Bicarbonate 150 MEQ in IV D5W 1,000 ML IV PRN ×3 (05:42→15:26)
[2019-07-10 05:43] LABS: CALCIUM, SERUM 6.1 mg/dL (8.5-10.1); CREATININE 4.4 mg/dL (0.6-1.3); POTASSIUM 3.9 mmol/L (3.5-5.1)
[2019-07-10] MEDS ORDERED: VANCOMYCIN 1.25 GM in IV D5W 250 ML IV SCH (06:00)
--- NOTE | 2019-07-10 07:30 | NUR ---
AUDITING CODER OPENING NOTE RECEIVED REPORT FROM PM NURSE.PATIENT IN BED.ORALLY INTUBATED.7.5A 25@LIP LEVEL.ON AC 26,TV 750, FI02 100% PEEP 22. 02 SAT 70-80%. HOB ELEVATED. ON CAMRYN AT 300MCG/MIN AND VASOPRESSIN 0.04 UNITS/MIN.ON LEVO 6MCG. REMAINS SEDATED ON DIPRIVAN AT 50MCG/KG/MIN. IVF WITH BICARB INFUSING. BETHEA CATH HAS <10 ML URINE.IV LINES ARE INTACT.BED IS LOW AND IN LOCKED POSITION. CALL LIGHT IN REACH.BED ALARM ON.SRX3.WILL CONTINUE TO MONITOR.
[2019-07-10] MEDS: ACETYLCYSTEINE 10% SOLN 400 MG/4 ML VIAL NEB SCH ×2 (07:39→15:28)
--- NOTE | 2019-07-10 07:58 | NUR ---
WOUND CARE CONSULT: PT UNSTABLE AT THIS TIME FOR SKIN ASSESSMENT. PER ADMISSION DOCUMENTATION PT HAS DRY LESION TO UPPER LIP, PRESENT ON ADMISSION. RN TO DISCUSS WITH MD. DISCUSSED SKIN PROTECTION WITH NURSING STAFF. WILL SEE PT PT CONDITION PERMITS. Addendum: 07/10/19 at 0806 by SHAYY HERNANDEZ WNDNU FIRST STEP LOW AIRLOSS MATTRESS ON ORDER. CURRENT KATRINA SCORE IS 12. MD IN AGREEMENT WITH PLAN OF CARE.
[2019-07-10 08:00] LABS: ABG BASE EXCESS -4.6 mmol/L; ABG OXYGEN SATURATION 70.6 % (92.0-98.5); ABG PCO2 42.6 mmHg (35.0-45.0); ABG PH 7.315 (7.350-7.450); ABG PO2 44.6 mmHg (75.0-100.0); AaDO2 625.8 mmHg; COHb 1.4 % (0.5-1.5); MetHb 0.4 % (0.0-1.5); O2Hb 69.3 % (94.0-97.0); PEEP,BG 22 cm H2O; SITE, ABG Left Radial; VT, ABG 750 mL
--- NOTE | 2019-07-10 08:20 | NUR ---
MOP WORKER NOTE SEEN BY .RELAYED ABG RESULT.RT JEAN AT BEDSIDE.WILL CONTINUE TO MONITOR.
--- NOTE | 2019-07-10 08:23 | NUR ---
VENT CHANGES BELOW MADE PER DR. REYNOSO: AC 32 VT 700 ML PEEP +24 RN NOTIFIED ON CHANGES. Addendum: 07/10/19 at 0824 by JEAN JANE RT Amended: Links added.
[2019-07-10] MEDS: HYDROCORTISONE SOD SUCCINATE 100 MG/2 ML VIAL IV SCH ×3 (08:26→17:05)
[2019-07-10] MEDS: MULTIVITAMINS,THERAGRAN 1 UDTAB TABLET NG SCH (08:26)
[2019-07-10] MEDS: PANTOPRAZOLE 40 MG VIAL IV SCH (08:26)
[2019-07-10] MEDS: FOLIC ACID 1 MG TABLET NG SCH (08:26)
[2019-07-10] MEDS: THIAMINE HCL 100 MG TABLET NG SCH (08:26)
[2019-07-10] MEDS: OSELTAMIVIR PHOSPHATE 75 MG CAPSULE PO SCH ×2 (08:26→17:05)
[2019-07-10 10:12] LABS: ABG BASE EXCESS -0.7 mmol/L; ABG OXYGEN SATURATION 68.5 % (92.0-98.5); ABG PCO2 48.3 mmHg (35.0-45.0); ABG PH 7.336 (7.350-7.450); ABG PO2 41.4 mmHg (75.0-100.0); AaDO2 623.3 mmHg; COHb 1.5 % (0.5-1.5); MetHb 0.7 % (0.0-1.5); PEEP,BG 24 cm H2O; SITE, ABG A-Line; VT, ABG 700 mL
--- NOTE | 2019-07-10 10:41 | NUR ---
FOLLOWING VENT CHANGES MADE PER DR. REYNOSO: BiLEVEL MODE, P-HIGH 58, P-LOW 24, FREQ 32, I:E ratio 1:2.0. Addendum: 07/10/19 at 1043 by JEAN JANE RT Amended: Links added.
[2019-07-10] MEDS: MEROPENEM 1 G in IV NS 0.9% 100 ML IV SCH (10:52)
--- NOTE | 2019-07-10 12:30 | NUR ---
US MARKETING DIRECTOR NOTE SARATH AT BEDSIDE.SPOKE TO THE PATIENT FAMILY.SPOKE TO THE SISTER.EXPLAINED POOR PROGNOSIS.S/P HD CATH WIT PIG TAIL ON L FEMORAL BY .INTACT AND PATENT.DECREASE O2 SAT IN 60'S-70'S. AWARE.CHANGING VENT SETTINGS.WILL DO ABG AFTER.WILL CONTINUE TO MONITOR.
[2019-07-10] MEDS: NOREPINEPHRINE 16 MG in IV D5W 500 ML IV PRN (12:41)
[2019-07-10 13:10] LABS: ABG BASE EXCESS -0.5 mmol/L; ABG OXYGEN SATURATION 74.7 % (92.0-98.5); ABG PCO2 47.6 mmHg (35.0-45.0); ABG PH 7.343 (7.350-7.450); ABG PO2 45.6 mmHg (75.0-100.0); AaDO2 619.8 mmHg; COHb 1.4 % (0.5-1.5); MetHb 0.8 % (0.0-1.5); O2Hb 73.1 % (94.0-97.0); SITE, ABG A-Line; VENT MODE, BG p-high 58/ p-low 24
--- NOTE | 2019-07-10 13:37 | NUR ---
vent changes below per dr. quigley: p-low 25 Addendum: 07/10/19 at 1337 by JEAN JANE RT Amended: Links added.
[2019-07-10] MEDS: VASOPRESSIN INJ 50 UNIT in IV D5W 497.5 ML IV PRN (14:18)
--- NOTE | 2019-07-10 14:30 | NUR ---
EXPORT DOCUMENTS CLERK NOTE PATIENT IS NOT STABLE TO TURN AND REPOSITION.ONGOING DIALYSIS WITH LOW O2 SAT OF 60'S WITH BILEVEL VENT SETTINGS WITH 100% O2.WILL CONTINUE TO MONITOR.
[2019-07-10] MEDS: FLUCONAZOLE IN NS,PREMIX 200 MG in PREMIX 1 EA IV SCH ×2 (15:43)
--- NOTE | 2019-07-10 16:00 | NUR ---
BASEBALL SEWER HAND NOTE PER RT NO CHANGES IN ETT POSITION. MADE AWARE BY RT.
--- NOTE | 2019-07-10 16:00 | NUR ---
DIE CUTTER NOTE S/P DIALYSIS.1.5L OUT FROM HD.SATURATING 60'S WITH 100% FIO2.WILL CONTINUE TO MONITOR.
[2019-07-10 16:23] LABS: ABG BASE EXCESS -4.4 mmol/L; ABG OXYGEN SATURATION 79.8 % (92.0-98.5); ABG PCO2 44.9 mmHg (35.0-45.0); ABG PH 7.302 (7.350-7.450); ABG PO2 54.9 mmHg (75.0-100.0); AaDO2 613.2 mmHg; COHb 1.7 % (0.5-1.5); MetHb 0.4 % (0.0-1.5); O2Hb 78.1 % (94.0-97.0); SITE, ABG A-Line; VENT MODE, BG p-high 58/ p-low 25
[2019-07-10] MEDS: LEVOFLOXACIN 500 MG /D5W 100ML 500 MG in PREMIX 1 EA IV SCH (17:06)
--- NOTE | 2019-07-10 18:00 | NUR ---
SALES MANAGEMENT INTERN NOTE PATIENT WAS COUGHING .SISTER WAS AT BEDSIDE.VENT ALARM ON.FIND OUT PATIENT ET TUBE NOT IN RIGHT POSITION.LEAKING AIR .DR.NEW BENITEZ IN ER MADE AWARE.ET TUBE READJUSTED BY 'S ORDER.BREATH SOUNDS BILATERAL COARSE RHONCHI POST ET TUBE ADJUSTMENT.AWAITING C XRAY RESULT.
--- NOTE | 2019-07-10 18:05 | NUR ---
ET TUBE ADJUSTED TO 28 CM CENTER OF THE LIPS PER DR. AYOUB. BREATH SOUNDS BILATERAL COARSE RHONCHI POST ET TUBE ADJUSTMENT. Addendum: 07/10/19 at 1806 by JEAN JANE RT Amended: Links added.
--- NOTE | 2019-07-10 19:32 | NUR ---
COPY CAMERA OPERATOR CLOSING NOTE PATIENT IS INTUBATED AND SEDATED.WITH O2 SAT 68% WITH 100% O2.ALL IV LINES ARE INTACT AND PATENT.ST ON TELE MONITOR.ENDORSED TO PM NURSE FOR KEVIN.
[2019-07-10 20:30] LABS: ALBUMIN 1.6 g/dL (3.4-5.0); BILIRUBIN,TOTAL 3.5 mg/dL (0.2-1.0); CALCIUM, SERUM 6.2 mg/dL (8.5-10.1); POTASSIUM 3.9 mmol/L (3.5-5.1); TOTAL PROTEIN, SERUM 4.6 g/dL (6.4-8.2)
--- NOTE | 2019-07-10 20:39 | NUR ---
agricultural production engineer. initial assessment. rexceived the pt rest on the bed. orally intubated. sedated with diprivan. ett 7.5,lip 28ac 32, FIO2 100% IE 2:1,PEEP 58 HIGH, PEEP LOW 25. SAT 68. HOB ELEVATED.IV RT UPPER ARM PICC LINE LT AC 18,RT FEMORAL HD ACTH WITH PICC TALE.RT AC 18G. FC PATENT, NO URINE OUT PUT, AFEBRILE. GENERALIZED EDEMA 4+.IVF D5W IN 3 AMP 125 ML/H,DIP 50MCG/KG/MIN,LEVOPHED 2MCG/MIN,CAMRYN 300MCG/MIN,RAISSA 0.04 U/H,NGT LOW INTERMITTENT SUCTION. PT IS VERY UNSTABLE. SAT IS 68%. WILL CONTINUE TO MONITOR.
--- NOTE | 2019-07-10 20:48 | NUR ---
LABORER SAWMILL. PT SATURATION IS VERY LOW UNABLE TO REPOSITION.
--- NOTE | 2019-07-10 21:00 | NUR ---
ICU PT HAS NO GAG REFLEX. PUPIL DILATED AND FIXED.
--- NOTE | 2019-07-10 21:35 | NUR ---
RT PT CODED COMPRESSIONS INITIATED
--- NOTE | 2019-07-10 21:45 | NUR ---
SALES AND MARKETING MANAGER. PT SATURATION 50, SUCTION DONE. SUDDEN MONITOR SHOWING ASYSTOLE. ACTIVATED CODE BLUE. CPR STARTED, ONE ROUND EPI PUSHED. HEART RATE BACK, SAT 80%. CODE ACTIVATED 2135,FINISHED 2137.NO GAG REFLEX, PT IS VERY UNSTABLE.
[2019-07-10 22:03] LABS: CALCIUM, SERUM 6.3 mg/dL (8.5-10.1); CREATININE 3.9 mg/dL (0.6-1.3); MAGNESIUM 2.2 mg/dL (1.8-2.4); POTASSIUM 3.9 mmol/L (3.5-5.1)
--- NOTE | 2019-07-10 22:12 | NUR ---
ROLLER HAND. 2ND CODE WAS 2212, CODE END [id number].PT IS VERY UNSTABLE. PUPIL FIXED AND DILATED.
--- NOTE | 2019-07-10 22:41 | NUR ---
ELIGIBILITY AND OCCUPANCY INTERVIEWER. LT SIDE NECK EMPHYSEMA NOTED. CHEST X RAY ORDERED.
[2019-07-10] MEDS ORDERED: EPINEPHRINE (1:1000) 1 MG/ML AMPUL ONE (22:47)
--- NOTE | 2019-07-10 22:55 | NUR ---
RT PT CODED 5X PLACED BACK ON [facility] VENT
[2019-07-10] MEDS ORDERED: EPINEPHRINE (1:1000) 2 MG in IV D5W 250 ML IV PRN (23:00)
--- NOTE | 2019-07-10 23:00 | NUR ---
CUTTING TORCH OPERATOR. PT MULTIPLE TIME CODED. LUCA KENDALL SPOKE WITH PT SISTER AND FATHER., FAMILY DECIDED TO DNR,.FAMILY AT BED SIDE. SEE THE CODE BLUE SHEET. STAT BLOOD WORK AND CHEST X RAY ORDERED, WILL CONTINUE TO MONITOR
--- NOTE | 2019-07-10 23:00 | NUR ---
pedicurist. pt trino craig spoke with family. pt father and SISTER decided to change code status DNR.
[2019-07-10] MEDS ORDERED: ATROPINE SULFATE 1 MG/10 ML DISP.SYRIN IV ONE (23:03)
[2019-07-10] MEDS ORDERED: EPINEPHRINE (1:10,000) SYRINGE 1 MG/10 ML DISP.SYRIN IVP ONE ×2 (23:03)
--- NOTE | 2019-07-10 23:20 | NUR ---
ASSEMBLER CATERPILLAR SPIDER. NOTIFIED [facility] [employer] .SPOKE PERSON IS AMBER. # [phone]
--- NOTE | 2019-07-10 23:45 | NUR ---
CLAM DREDGE BOAT CAPTAIN. NOTIFIED CORNER, SPOKE PERSON IS KARYN. CASE # [id number]
--- NOTE | 2019-07-11 | NUR ---
POTTERY MACHINE OPERATOR. NOTIFIED ADMITTING SANTOSH AND CO DIRECTOR OMA.
--- NOTE | 2019-07-11 00:52 | NUR ---
SAND MIXER MACHINE. POSTMORTEM CARE GIVEN. INTERNAL TUBES INTACT/
--- NOTE | 2019-07-11 01:42 | NUR ---
RESPIRATORY CARE INSTRUCTOR. BODY TRANSFER TO [facility]
== END 2019-07-10 23:04 | disposition expired | DRG 870 ==
LOC: ER 15:53 → ICU 21:17
PROVIDERS: ADMIT Internal Medicine; ATTEND Nurse Practitioner Acute Care
PROC: 5A1955Z Respiratory Ventilation, Greater than 96 Consecutive Hours (ICD-10-PCS; principal; 2019-07-06)
PROC: 0BH17EZ Insertion of Endotracheal Airway into Trachea, Via Natural or Artificial Opening (ICD-10-PCS; principal; 2019-07-06)
PROC: 02HV33Z Insertion of Infusion Device into Superior Vena Cava, Percutaneous Approach (ICD-10-PCS; 2019-07-08)
PROC: B548ZZA Ultrasonography of Superior Vena Cava, Guidance (ICD-10-PCS; 2019-07-08)
PROC: 04HY33Z Insertion of Infusion Device into Lower Artery, Percutaneous Approach (ICD-10-PCS; 2019-07-09)
PROC: 06HY33Z Insertion of Infusion Device into Lower Vein, Percutaneous Approach (ICD-10-PCS; 2019-07-10)
PROC: 5A12012 Performance of Cardiac Output, Single, Manual (ICD-10-PCS; 2019-07-10)
DX: A41.9 Sepsis, unspecified organism (principal); J69.0 Pneumonitis due to inhalation of food and vomit; G92 Toxic encephalopathy; E43 Unspecified severe protein-calorie malnutrition; J96.01 Acute respiratory failure with hypoxia; N17.0 Acute kidney failure with tubular necrosis; R65.21 Severe sepsis with septic shock; D65 Disseminated intravascular coagulation [defibrination syndrome]; E87.2 Acidosis; E22.2 Syndrome of inappropriate secretion of antidiuretic hormone; D61.818 Other pancytopenia; K92.2 Gastrointestinal hemorrhage, unspecified; E83.42 Hypomagnesemia; E83.51 Hypocalcemia; E87.6 Hypokalemia; F10.229 Alcohol dependence with intoxication, unspecified; E87.8 Other disorders of electrolyte and fluid balance, not elsewhere classified; K76.0 Fatty (change of) liver, not elsewhere classified; Z66 Do not resuscitate; R74.0 Nonspecific elevation of levels of transaminase and lactic acid dehydrogenase [LDH]; E80.6 Other disorders of bilirubin metabolism; R59.0 Localized enlarged lymph nodes; I27.20 Pulmonary hypertension, unspecified; Y90.8 Blood alcohol level of 240 mg/100 ml or more; Z68.29 Body mass index [BMI] 29.0-29.9, adult; Z59.0 Homelessness
CPT/HCPCS: 31720; 36415; 36569; 36600; 70470-TC; 71045-TC; 71260-TC; 80048-TC; 80053-TC; 80061-TC; 80074; 80076-TC; 80202-TC; 80305; 81000-TC; 82248-TC; 82272-TC; 82803-TC; 82962-TC; 83605-TC; 83735-TC; 84100-TC; 84443-TC; 84484-TC; 85025-TC; 85385-TC; 85730-TC; 86706; 87040-TC; 87070-TC; 87081-TC; 87086-TC; 87340; 87899; 90935-TC; 92950-TC; 93307-TC; 94002-TC; 94003-TC; 94640-TC; 94760-TC; A4216; A6403; C1751; C9113; G0378; G0480; J0171; J0330; J0461; J1442; J1447; J1450; J1720; J1956; J2060; J2185; J2270; J2370; J2543; J3370; J3475; J3480; J3490; J7030; J7040; J7042; J7050; J7060; J7070; P9047; Q9967